=== PATIENT | male | born 1985 | race Caucasian/White ===

== ENCOUNTER 2019-03-17 19:34 | Emergency (ER) | payer MEDICAID ==
[~2019-03-17] VITALS: Ht 172.7 cm; Wt 59.0 kg
[2019-03-17 19:34] VITALS: BP 140/82
--- NOTE | 2019-03-17 19:34 | NUR ---
came to er by rescue states he is homeless and suicidal. plan is to run to traffic. on arrival patient is awake alert oriented. no distress noted patient has an abscess on back and redness and swelling on right hand per patient he was seen in some hospital in [place] and given injection. homeless paperwork started
--- NOTE | 2019-03-17 19:35 | NUR ---
ED Nurse Note: Pt's belongings in psych locker #1
--- NOTE | 2019-03-17 19:45 | NUR ---
ED Nurse Note: SItter at bedside
[2019-03-17] MEDS ORDERED: Piperacillin/Tazobactam 3.375 GM in NS 110 ML IVPB ONE (20:00)
[2019-03-17] MEDS ORDERED: DiphenhydrAMINE 50mg/ml Inj IM ONE (20:00)
[2019-03-17] MEDS ORDERED: TraZODone HCl 25 mg tablet ORAL ONE (20:15)
[2019-03-17] MEDS ORDERED: TraZODone 50mg tab ORAL ONE (20:15)
--- NOTE | 2019-03-17 20:49 | Emergency Room Report ---
History of Present Illness General Chief Complaint: Behavioral Complaint Source: Patient (Bernice Pardo) Present Illness HPI 34-year-old male with history of schizoaffective bipolar disorder walks into the ER today reporting he thought about jumping in front of the traffic and harm himself today. Patient reports that he is from [place] and he found his way to get to [place] and has been in [place] for the past 2 weeks. He is homeless. Has not seen his psychiatrist in over 2 weeks and has not been taking his Risperdal and trazodone for 2 weeks. Patient reports that he has been having multiple thoughts of harming himself in the past 2 weeks and has been praying to God that he will not and hit his head really hard to concrete to pray. Patient also has swelling and redness to the right forearm and abscess in her his back and reports that he went to a different hospital in [place] last night and was treated with IV antibiotics. Patient denies HI however reports that he has lots and lots of suicidal ideation and hearing voices. Patient reports that he was diagnosed with bipolar disorder however present mostly with schizoaffective bipolar. Complains of lack of sleep and depression. Admits to taking a lot of methamphetamine 2 days ago reporting that he wanted to harm himself denies all other drug use, smoking and alcohol. Denies chest pain, shortness of breath, palpitation, abdominal pain, nausea vomiting, and all other associated symptoms. (Bernice Pardo) Allergies: Coded Allergies: No Known Allergies (Unverified , 03/17/19) Patient History Past Medical History: see triage record Past Surgical History: unable to obtain Family History: unable to obtain Social History: drug use - methamphethamine Immunizations: UTD Reviewed Nursing Documentation: PMH: Agreed; PSxH: Agreed (Bernice Pardo) Nursing Documentation-PMH History Of Psychiatric Problem: Yes - depression (Bernice Pardo) Review of Systems All Other Systems: negative except mentioned in HPI (Bernice Pardo) Physical Exam Vital Signs Date Time Temp Pulse Resp B/P (MAP) Pulse Ox O2 Delivery O2 Flow Rate FiO2 03/17/19 19:34 98.1 76 16 140/82 (101) 98 Room Air Sp02 EP Interpretation: reviewed, normal General Appearance: alert/responsive, GCS 15, other - Disheveled Eyes: PERRL, lids + conjunctiva normal ENT: normal ENT inspection, TMs + canals normal, hearing intact Neck: normal inspection, supple/symm/no masses, thyroid normal Respiratory: normal inspection, effort normal, no rhonchi Cardiovascular: normal inspection, regular rate, rhythm, no murmur, gallop, rub Gastrointestinal: normal inspection, non-tender, no mass, non-distended Musculoskeletal: normal inspection, gait & station normal, digits & nails normal Neurologic: normal inspection, CN II-XII intact Psychiatric: anxious, other - Suicidal ideation Skin: other - Cellulitis right forearm, abscess and lower back, multiple abrasions on the face. Lymphatic: normal inspection, normal cervical nodes (Bernice Pardo) Procedures Incision and Drainage Incision and Drainage : Consent: Verbal Site: lower back Blade Size: 11 I & D Procedure: betadine prep Wound Location: pelvis Wound Explored: clean Anesthesia: 1% Lidocaine Volume Anesthetic (ccs): 5 Splint Applied?: No Sling Applied?: No Patient Tolerated: Well Complications: None (Bernice Pardo) Medical Decision Making PA Attestation All diagnoses and treatment plans were reviewed and discussed with my supervising physician Dr. Cameron (Bernice Pardo) Diagnostic Impression: Primary Impression: Schizo affective schizophrenia Additional Impressions: Suicidal ideation Cellulitis of right forearm Abscess of lower back ER Course 34-year-old male with history of schizoaffective bipolar disorder walks into the ER today reporting he thought about jumping in front of the traffic and harm himself today. Patient reports that he is from [place] and he found his way to get to [place] and has been in [place] for the past 2 weeks. He is homeless. Has not seen his psychiatrist in over 2 weeks and has not been taking his Risperdal and trazodone for 2 weeks. Patient reports that he has been having multiple thoughts of harming himself in the past 2 weeks and has been praying to God that he will not and hit his head really hard to concrete to pray. Patient also has swelling and redness to the right forearm and abscess in her his back and reports that he went to a different hospital in [place] last night and was treated with IV antibiotics. Patient denies HI however reports that he has lots and lots of suicidal ideation and hearing voices. Patient reports that he was diagnosed with bipolar disorder however present mostly with schizoaffective bipolar. Complains of lack of sleep and depression. Admits to taking a lot of methamphetamine 2 days ago reporting that he wanted to harm himself denies all other drug use, smoking and alcohol. Denies chest pain, shortness of breath, palpitation, abdominal pain, nausea vomiting, and all other associated symptoms. Ddx considered but are not limited to: generalized anxiety disorder, panic attack, depression with psycotic featurs, bipolar disorder, drug overdose Vital signs: are WNL, pt. is afebrile H&PE are most consistent with: Schizoaffective bipolar disorder, suicidal behavior and attempt of self injury, cellulitis right forearm, abscess lower back ORDERS: Psychiatric set, right forearm x-ray, ED INTERVENTIONS: Zosyn, trazodone, Benadryl, Risperdal, NS bolus Patient transferred to psychiatric facility (Bernice Pardo) ER Course Please see above report. Patient signed out to Dr. Hart. (John Paul Cameron MD) ER Course Patient was medically cleared for psychiatric placement. Patientn will be transferred for psychiatric evaluation. (Dieter Hart MD) EKG Diagnostic Results Rate: normal Rhythm: NSR ST Segments: no acute changes (Bernice Pardo) Chest X-Ray Diagnostic Results Chest X-Ray Diagnostic Results : Electronically Signed by: Michelle Prince documentation of Xray reviewed by me and is accurate, John Paul Cameron MD (John Paul Cameron MD) Other X-Ray Diagnostic Results Other X-Ray Diagnostic Results : # of Views/Limited Vs Complete: 1 View Indication: Other EP Interpretation: Yes Interpretation: no dislocation, no soft tissue swelling, no fractures Impression: Other - abnormal perihilar consolidation Electronically Signed by: bernice zamarripa PA-C (Bernice Pardo) CT/MRI/US Diagnostic Results CT/MRI/US Diagnostic Results : Imaging Test Ordered: Head CT no contrast Impression FINDINGS: No intracranial hemorrhage, abnormal intra- or extra-axial collections or parenchymal lesions are seen. The shape and configuration of the cortical sulci, basal cisterns and ventricles are within normal limits. The colmenares -white differentiation is preserved. No evidence of mass effect, midline shift, or edema. The osseous structures are unremarkable. The visualized portions of the paranasal sinuses are clear. Midline frontal scalp contusion is present. IMPRESSION: Frontal scalp contusion with no associated skull fracture or acute intracranial pathology. (Bernice Pardo) Last Vital Signs Date Time Temp Pulse Resp B/P (MAP) Pulse Ox O2 Delivery O2 Flow Rate FiO2 03/17/19 19:34 98.1 76 16 140/82 (101) 98 Room Air (Bernice Pardo) Disposition: XFER TO PSYCH HOSP/UNIT Condition: Stable Bernice Pardo Mar 17, 2019 20:49 John Paul Cameron MD Mar 18, 2019 02:37 Dieter Hart MD Mar 18, 2019 03:13
[2019-03-17 21:13] LABS: BASOPHILS % (AUTO) 1.4 % (0.0-2.0); EOSINOPHILS % (AUTO) 2.7 % (0.0-3.0); HEMATOCRIT 41.4 % (42.0-52.0); HEMOGLOBIN 14.3 G/DL (14.2-18.0); LYMPHOCYTES % (AUTO) 10.3 % (20.0-45.0); MEAN CORPUSCULAR VOLUME 93 FL (80-99); MONOCYTES % (AUTO) 8.8 % (1.0-10.0); NEUTROPHILS % (AUTO) 76.8 % (45.0-75.0); PLATELET COUNT 261 K/UL (150-450); RED BLOOD COUNT 4.44 M/UL (4.70-6.10); RED CELL DISTRIBUTION WIDTH 10.2 % (11.6-14.8); WHITE BLOOD COUNT 9.4 K/UL (4.8-10.8)
[2019-03-17 21:18] LABS: ANION GAP 7 mmol/L (5-15); BLOOD UREA NITROGEN 20 mg/dL (7-18); CALCIUM 9.1 MG/DL (8.5-10.1); CARBON DIOXIDE 32 MMOL/L (21-32); CHLORIDE 100 MMOL/L (98-107); CREATININE 1.1 MG/DL (0.55-1.30); POTASSIUM 3.9 MMOL/L (3.5-5.1); SODIUM 139 MMOL/L (136-145)
[2019-03-17 21:22] LABS: ALANINE AMINOTRANSFERASE 17 U/L (12-78); ALBUMIN 3.6 G/DL (3.4-5.0); ALKALINE PHOSPHATASE 81 U/L (46-116); ASPARTATE AMINO TRANSFERASE 18 U/L (15-37); BILIRUBIN,TOTAL 0.4 MG/DL (0.2-1.0); CREATINE KINASE 154 U/L (26-308)
[2019-03-17 21:30] VITALS: BP 132/84
[2019-03-17] MEDS ORDERED: Lidocaine 1% 10mg/ml/Epi 0.005mg/ml 30ml vial INJ ONE (21:30)
[2019-03-17] MEDS ORDERED: Lidocaine 1% Plain 30 ml INJ ONE (21:30)
[2019-03-17 21:55] LABS: APPEARANCE,URINE CLEAR; BILIRUBIN, URINE NEGATIVE (NEGATIVE); COLOR,URINE BROWN; GLUCOSE, URINE (UA) NEGATIVE (NEGATIVE); KETONES,URINE 2+ (NEGATIVE); LEUKOCYTE ESTERASE ,URINE 1+ (NEGATIVE); NITRITE,URINE NEGATIVE (NEGATIVE); PH,URINE 5 (4.5-8.0); PROTEIN,URINE 2+ (NEGATIVE); UROBILINOGEN,URINE 4 MG/DL (0.0-1.0)
--- NOTE | 2019-03-17 21:58 | NUR ---
ED Nurse Note: pT ABCESS ON LOWER LEFT BACK, CLEANED/PACKED/DRESSED. PT TOLERATED WELL
[2019-03-17 23:30] VITALS: BP 128/76
--- NOTE | 2019-03-18 00:05 | NUR ---
ED Nurse Note: Pt resting with eyes closed, non-labored breathing. No further orders at this time. Will continue to monitor
[2019-03-18 01:36] VITALS: BP 130/78
--- NOTE | 2019-03-18 02:00 | NUR ---
ED Nurse Note: Pt arousable to name. Offered food, water and toiletting. Pt denies pain at this time. No further orders at this time. Will continue to monitor
[2019-03-18 03:30] VITALS: BP 134/67
--- NOTE | 2019-03-18 05:00 | NUR ---
ED Nurse Note: Pt resting with eyes closed, non-labored breathing. No further orders at this time. Will continue to monitor.
[2019-03-18 05:30] VITALS: BP 129/72
--- NOTE | 2019-03-18 07:11 | NUR ---
HAND-OFF: Report given to MARIS Young.
--- NOTE | 2019-03-18 07:15 | NUR ---
ED Nurse Note: PRIMARY RN SITTER.
--- NOTE | 2019-03-18 07:56 | NUR ---
ED Nurse Note: PT STILL SLEEPING AT THIS TIME. BREAKFAST TRAY LEFT AT THE BED SIDE.
[2019-03-18 08:00] VITALS: BP 118/68
[2019-03-18] MEDS ORDERED: RISPERIDONE0.25 MG PO (08:23)
--- NOTE | 2019-03-18 08:26 | NUR ---
ED Nurse Note: REPORT GIVEN TO STEVE POLLOCK OF [facility].
--- NOTE | 2019-03-18 09:23 | Diagnostic Imaging Report ---
Indications: Head trauma Technique: Spiral acquisitions obtained through the brain. Angled axial and coronal 5 x 5 mm slices were reconstructed. Total dose length product 1492.21 mGycm. CTDI vol(s) 70.38 mGy. Dose reduction achieved using automated exposure control Comparison: None. Findings: There is a predominantly right-sided but bilateral supraorbital scalp contusion. There may be some superficial foreign bodies and a slight laceration. No acute intracranial hemorrhage or edema, mass effect, nor midline shift. Normal-sized ventricles and extra axial CSF spaces. Normal aguilar-white differentiation. Visualized orbits are unremarkable. The calvarium is intact. The sinuses are clear. The mastoids are clear. Impression: Evidence of supraorbital scalp soft tissue injury Negative for acute intracranial bleed or mass effect. This agrees with the preliminary interpretation provided overnight by [facility]erad[facility] service. The CT scanner at [facility] is accredited by the [employer] and the scans are performed using protocols designed to limit radiation exposure to as low as reasonably achievable to attain images of sufficient resolution adequate for diagnostic evaluation.
--- NOTE | 2019-03-18 09:30 | NUR ---
ED Nurse Note: PRIMARY RN THE SITTER. NO SIGNS OF DISTRESS. WAITING FOR [facility] FOR TRANSPORT.
[2019-03-18 10:33] VITALS: BP 122/70
--- NOTE | 2019-03-18 10:33 | NUR ---
ED Nurse Note: PT TRANSFERRED TO [facility] WITH [facility]. BELONGINGS SENT WITH PT.
--- NOTE | 2019-03-18 10:40 | NUR ---
ED Nurse Note: D/C SITTER ORDER AT THE BEDSIDE. PT. TRANSFERRED TO [facility]
--- NOTE | 2019-03-18 11:13 | Diagnostic Imaging Report ---
Indications: Pain, infection Technique: Two views of the right forearm Comparison: None Findings: No acute fractures. No dislocations. No radiopaque foreign body. No soft tissue gas. No osseous erosions or unusual periosteal reaction. Impression: No acute bony trauma No plain radiographic evidence of osteomyelitis. Note, however, limits sensitivity of plain radiographs for such. Consider further evaluation with bone scan or MRI if there is high clinical suspicion
--- NOTE | 2019-03-18 11:59 | Diagnostic Imaging Report ---
Indication: Chest pain Technique: One view of the chest Comparison: none Findings: Patient is slightly rotated to the left. There is fullness of the left perihilar region. The lungs and pleural spaces are clear. Heart size is normal. Impression: Left hilar region fullness, could be artifactual related to patient being rotated, but mass or adenopathy not excludable. Consider further evaluation with repeat radiography or chest CT No acute process otherwise Findings discussed by phone with Dr. Chambers in the emergency room at the time of interpretation
--- NOTE | 2019-03-18 13:09 | Cardiology Report ---
APPROVED REPORT EKG Measurement Heart [id number] Normal sinus rhythm Incomplete right bundle branch block Prolonged QT Abnormal ECG
== END 2019-03-18 10:33 ==
LOC: EDBD 19:34 → EMR 21:39
DX: R45.851 Suicidal ideations (principal); F25.9 Schizoaffective disorder, unspecified; L03.113 Cellulitis of right upper limb; L02.212 Cutaneous abscess of back [any part, except buttock and flank]; F32.9 Major depressive disorder, single episode, unspecified
CPT/HCPCS: 10060; 70450; 71045; 73090; 80053; 80307; 80329; 81003; 82550; 84484; 85025; 85610; 85730; 93005; 96361; 96365; 96372; 99285; J1200; J2543